=== PATIENT | male | born 1990 | race Hispanic/Latino ===

== ENCOUNTER 2023-12-07 01:48 | Emergency (ER) | payer SELFPAY ==
[2023-12-07] MEDS ORDERED: FLUORESCEIN SODIUM 1 MG/WRAP ONE (03:12)
[2023-12-07] MEDS ORDERED: TETRACAINE HCL 0.5% 4ML OPTH ONE (03:12)
--- NOTE | 2023-12-07 05:04 | EDPHYS ---
Physician Documentation [facility] Name: Andres Sanz Age: 33 yrs Sex: Male : 1990 Arrival Date: 12/07/2023 Time: 01:48 Bed 12 Private MD: ED Physician Marquis Lucas HPI: 12/06 02:15 This 33 yrs old Male presents to ER via Unassigned with complaints of Foreign sp4 Body In Eye. 20:06 34-year-old male presents with complaint of bilateral eye redness and irritation. 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 Patient has sensation of foreign body in bilateral eyes. . Historical: - Allergies: 02:24 NKDA; jb4 - PMHx: 02:24 None; jb4 - PSHx: 02:24 None; jb4 - Immunization history:: Adult Immunizations up to date. - Infectious Disease History:: Denies. - Social history:: Smoking status: Patient reports the use of cigarette tobacco products, smokes one-half pack cigarettes per day. - Family history:: not pertinent. ROS: 20:09 Constitutional: Negative for fever, chills, and weight loss, positive for bilateral eye sp4 redness and irritation 20:09 All other systems are negative, Exam: 20:09 Visual Acuity: Visual acuity is within normal limits. sp4 20:09 Constitutional: This is a well developed, well nourished patient who is awake, alert, and in no acute distress. Head/Face: Normocephalic, atraumatic. Eyes: Pupils equal round and reactive to light, extra-ocular motions intact. Lids and lashes normal. Conjunctiva and sclera are injected and erythematous without significant ulceration, no foreign bodies of the fluorescein eye examination , cornea within normal limits. Periorbital areas with no swelling, redness, or edema. No sign of corneal abrasion no sign of bilateral corneal foreign body. Exam consistent with photokeratitis ENT: Nares patent. No nasal discharge, no septal abnormalities noted. Tympanic membranes are normal and external auditory canals are clear. Oropharynx with no redness, swelling, or masses, exudates, or evidence of obstruction, uvula midline. Mucous membranes moist. Neck: Trachea midline, no thyromegaly or masses palpated, and no cervical lymphadenopathy. Supple, full range of motion without nuchal rigidity, or vertebral point tenderness. Chest/axilla: Normal chest wall appearance and motion. Nontender with no deformity. No lesions are appreciated. Cardiovascular: Regular rate and rhythm with a normal S1 and S2. No gallops, murmurs, or rubs. Normal PMI, no JVD. No pulse deficits. Respiratory: Lungs have equal breath sounds bilaterally, clear to auscultation and percussion. No rales, rhonchi or wheezes noted. No increased work of breathing, no retractions or nasal flaring. Abdomen/GI: Soft, with normal bowel sounds. No distension or tympany. No guarding or rebound. No evidence of tenderness throughout. Back: No spinal tenderness. No costovertebral tenderness. Skin: Warm, dry with normal turgor. Normal color with no rashes, no lesions, and no evidence of cellulitis. MS/ Extremity: Pulses equal, no cyanosis. Neurovascular intact. Full, normal range of motion. Neuro: Awake and alert, GCS 15, oriented to person, place, time, and situation. Cranial nerves II-XII grossly intact. Motor strength 5/5 in all extremities. Sensory grossly intact. Psych: Awake, alert, with orientation to person, place and time. Behavior, mood, and affect are within normal limits Vital Signs: 02:13 BP 131 / 92; Pulse 63; Resp 16; Temp 97.6; Pulse Ox 100% on R/A; Weight 73.94 kg; Pain jb4 8/10; 02:13 Pain Scale: Adult jb4 [place] Coma Score: 20:09 Eye Response: spontaneous(4). Motor Response: obeys commands(6). Verbal Response: sp4 oriented(5). Total: 15. MDM: 02:46 Patient medically screened. sp4 20:09 Differential diagnosis: Corneal abrasion of Corneal ulcer of Foreign body in Acute sp4 iritis of Acute glaucoma in Ultraviolet keratitis in. Data reviewed: vital signs, nurses notes. Consideration of Admission/Observation Escalation of care including admission/observation considered. ED course: Patient has signs of bilateral photokeratitis secondary to Welders burn. Patient stable for discharge home with 5 days of tobramycin ophthalmic drops to prevent conjunctivitis and for eye lubrication. 12/06 02:47 Order name: Eye Tray; Complete Time: 03:21 sp4 12/06 02:47 Order name: Fluoresene Opth strip; Complete Time: 03:21 sp4 Administered Medications: 04:50 Drug: Tetracaine Ophthalmic Drops 0.5 % 1 drops Ophthalmic once {Note: By ER provider.} jb4 Route: Ophthalmic; Site: both eyes; Disposition Summary: 12/07/23 05:03 Discharge Ordered Notes: Location: Home sp4 Problem: new sp4 Symptoms: have improved sp4 Condition: Stable sp4 Diagnosis - Photokeratitis, bilateral sp4 Followup: sp4 - With: Edward Cintron MD - When: As needed - Reason: Discharge Instructions: - Discharge Summary Sheet sp4 - Ultraviolet Keratitis, [id number] sp4 Forms: - Patient Portal Instructions sp4 Prescriptions: - tobramycin 0.3 % Ophthalmic drops - instill 1 drop OPHTHALMIC route every 4 hours for 5 days for 5 days; 5 sp4 milliliter; Refills: 0, Product Selection Permitted Signatures: Sebastien Vaughn RN RN jb4 Marquis Lucas MD MD sp4
--- NOTE | 2023-12-07 05:04 | ER ---
Nurse's Notes [facility] Name: Andres Sanz Age: 33 yrs Sex: Male : 1990 Arrival Date: 12/07/2023 Time: 01:48 Bed 12 Private MD: Diagnosis: Photokeratitis, bilateral Presentation: 12/06 02:13 Chief complaint: Patient states: It started with burning in my eyes and I cannot open jb4 them. The left eye is worse. It started around 9 or 10 pm. This is not the first time this has happened. Coronavirus screen: At this time, the client does not indicate any symptoms associated with coronavirus-19. Ebola Screen: No symptoms or risks identified at this time. Initial Sepsis Screen: Does the patient meet any 2 criteria? No. Patient's initial sepsis screen is negative. Does the patient have a suspected source of infection? No. Patient's initial sepsis screen is negative. Risk Assessment: Do you want to hurt yourself or someone else? Patient reports no desire to harm self or others. Onset of symptoms was December 07, 2023. Transition of care: patient was not received from another setting of care. 02:13 Method Of Arrival: Ambulatory jb4 02:13 Acuity: ELSA 4 jb4 Triage Assessment: 02:30 General: Appears in no apparent distress. uncomfortable, Behavior is calm, cooperative, jb4 appropriate for age. Pain: Complains of pain in right eye and left eye Pain does not radiate. Pain currently is 8 out of 10 on a pain scale. EENT: Sclera/Cornea are reddened in outer aspect of conjuctiva of right eye, iris of right eye, inner aspect of conjuctiva of right eye, outer aspect of conjuctiva of left eye, iris of left eye and inner aspect of conjunctiva of left eye. Neuro: Level of Consciousness is awake, alert, obeys commands, Oriented to person, place, time, situation. Cardiovascular: Patient's skin is warm and dry. Respiratory: Airway is patent Respiratory effort is even, unlabored, Respiratory pattern is regular, symmetrical. Historical: - Allergies: 02:24 NKDA; jb4 - PMHx: 02:24 None; jb4 - PSHx: 02:24 None; jb4 - Immunization history:: Adult Immunizations up to date. - Infectious Disease History:: Denies. - Social history:: Smoking status: Patient reports the use of cigarette tobacco products, smokes one-half pack cigarettes per day. - Family history:: not pertinent. Screenin:12 [facility] ED Fall Risk Assessment (Adult) History of falling in the last 3 months, jb4 including since admission No falls in past 3 months (0 pts) Confusion or Disorientation No (0 pts) Intoxicated or Sedated No (0 pts) Impaired Gait No (0 pts) Mobility Assist Device Used No (0 pt) Altered Elimination No (0 pt) Score/Fall Risk Level 0 - 2 = Low Risk Oriented to surroundings, Maintained a safe environment. Abuse screen: Denies threats or abuse. Nutritional screening: No deficits noted. Tuberculosis screening: No symptoms or risk factors identified. Assessment: 03:30 Reassessment: Physician made aware, supply for eye exam is at the bedside. jb4 04:29 Reassessment: Patient appears in no apparent distress at this time. Patient and/or jb4 family updated on plan of care and expected duration. Pain level reassessed. Patient is alert, oriented x 3, equal unlabored respirations, skin warm/dry/pink. 05:12 Reassessment: Patient appears in no apparent distress at this time. Patient and/or jb4 family updated on plan of care and expected duration. Pain level reassessed. Patient is alert, oriented x 3, equal unlabored respirations, skin warm/dry/pink. Vital Signs: 02:13 BP 131 / 92; Pulse 63; Resp 16; Temp 97.6; Pulse Ox 100% on R/A; Weight 73.94 kg; Pain jb4 8/10; 02:13 Pain Scale: Adult jb4 [place] Coma Score: 20:09 Eye Response: spontaneous(4). Motor Response: obeys commands(6). Verbal Response: sp4 oriented(5). Total: 15. ED Course: 01:50 Patient arrived in ED. jj6 02:14 Marquis Lucas MD is Attending Physician. sp4 02:23 Triage completed. jb4 02:24 Arm band placed on right wrist. jb4 05:02 Edward Cintron MD is Referral Physician. sp4 05:12 Patient has correct armband on for positive identification. Bed in low position. Call jb4 light in reach. Side rails up X 1. 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 05:12 No provider procedures requiring assistance completed. Patient did not have IV access jb4 during this emergency room visit. Administered Medications: 04:50 Drug: Tetracaine Ophthalmic Drops 0.5 % 1 drops Ophthalmic once {Note: By ER provider.} jb4 Route: Ophthalmic; Site: both eyes; Medication: 05:12 VIS not applicable for this client. jb4 Outcome: 05:03 Discharge ordered by . sp4 05:12 Discharged to home ambulatory, with family, jb4 05:12 Condition: stable 05:12 Discharge instructions given to patient, Instructed on discharge instructions, follow up and referral plans. medication usage, Demonstrated understanding of instructions, follow-up care, medications, Prescriptions given X 2, 05:14 Patient left the ED. jb4 Signatures: Sebastien Vaughn RN RN jb4 Amie Banda jj6 Marquis Lucas MD MD sp4
[2023-12-07 05:24] VITALS: BP 131/92; TEMP 97.6; O2SAT 100
== END 2023-12-07 05:14 | disposition home or self-care (01) ==
LOC: ER 01:48
DX: H16.133 Photokeratitis, bilateral (principal)
CPT/HCPCS: 99283